=== PATIENT | female | born 1960 | race American Indian/Alaskan Native ===

== ENCOUNTER 2016-07-23 17:17 | Emergency (ER) | payer MEDICARE, BC ==
[2016-07-23 17:32] VITALS: BP 150/84
[2016-07-23] MEDS ORDERED: Sodium Chloride 0.65% Nasal Spray 45 ML Bottle NAS ONE (18:06)
--- NOTE | 2016-07-23 18:12 | EDM.PDOC ---
ED HPI ENT - General Chief Complaint: ENT Problem Stated Complaint: ENT PROB Time Seen by Provider: 07/23/16 18:07 Source of Information: Reports: Patient History Limitations: Reports: No limitations - History of Present Illness INITIAL COMMENTS - FREE TEXT/NARRATIVE: Pt states that she has had multiple nose bleeds over the past week with the last being earlier today. States that it takes on average about 1 hour to control bleeding. c/o congestion and nasal drainage. Symptom Onset Date: 07/17/16 Timing/Duration: Reports: Getting worse, Waxing/waning Severity: moderate Location: Reports: right nares, left nares Improves with: Reports: None Worsens with: Reports: Other (blowing nose) Associated Symptoms: Reports: no other symptoms - Related Data Allergies/ADRs: Allergies Allergy/AdvReac Type Severity Reaction Status Date / Time cats Allergy Sneezing Uncoded 07/23/16 17:26 Home Meds: Home Meds Topiramate 150 mg PO BID 07/23/16 [History] carBAMazepine [Carbamazepine] 400 mg PO QID 07/23/16 [History] Past Medical History HEENT History: Reports: Impaired vision Cardiovascular History: Reports: High cholesterol, Hypertension Neurological History: Reports: Seizure - Infectious Disease History Infectious Disease History: Reports: Mumps Social & Family History - Family History Family Medical History: Noncontributory - Tobacco Use Smoking Status *Q: Former Smoker - Recreational Drug Use Recreational Drug Use: No ED ROS ENT - Review of Systems Review Of Systems: See Below HEENT: Reports: Nosebleed, Rhinitis, Sinus problem ED EXAM, ENT - Physical Exam Exam: See Below Exam Limited By: No limitations General Appearance: alert, WD/WN, no apparent distress Eye Exam: bilateral eye: PERRL Ears: normal external exam, normal canal, hearing grossly normal, TM fluid Nose: clear rhinorrhea, dried blood, injected turbinates Mouth/Throat: Normal inspection, Normal gums, Normal lips, Normal oropharynx, Normal teeth Respiratory/Chest: no respiratory distress, lungs clear, normal breath sounds, no accessory muscle use, chest non-tender Cardiovascular: normal peripheral pulses, regular rate, rhythm, no edema, no gallop, no JVD, no murmur, no rub Neurological: alert, oriented Course - Vital Signs Last Recorded V/S: Last Vital Signs Temp 96.8 F 03/27/17 17:27 Pulse 97 07/23/16 17:27 Resp 18 07/23/16 17:27 BP 150/84 H 07/23/16 17:27 Pulse Ox 99 07/23/16 17:27 - Orders/Labs/Meds Labs: Laboratory Tests 07/23/16 Range/Units 18:16 WBC 9.0 (5.0-10.0) 10^3/uL RBC 4.61 (4.2-5.4) 10^6/uL Hgb 16.0 (12.0-16.0) g/dL Hct 47.1 H (37.0-47.0) % MCV 102.2 H (80-100) fL MCH 34.7 H (27.0-34.0) pg MCHC 34.0 (33.0-35.0) g/dL Plt Count 241 (150-450) 10^3/uL Neut % (Auto) 76.4 H (42.2-75.2) % Lymph % (Auto) 16.9 L (20.5-50.1) % Grant % (Auto) 6.5 (2-8) % Eos % (Auto) 0.0 L (1.0-3.0) % Baso % (Auto) 0.2 (0.0-1.0) % Meds: Medications Discontinued Medications Generic Name Dose Route Start Last Admin Trade Name Christianoq PRN Reason Stop Dose Admin Sodium Chloride 2 ml 07/23/16 18:06 07/23/16 18:12 [place] Nasal [place] KERRY 07/23/16 18:07 2 ml ONETIME ONE Administration Departure - Departure Time of Disposition: 18:43 Disposition: Home, Self-Care 01 Condition: good Clinical Impression: Epistaxis Sinusitis nasal Qualifiers: Sinusitis location: unspecified location Chronicity: acute Recurrence: non- recurrent Qualified Code(s): J01.90 - Acute sinusitis, unspecified Forms: ED Department Discharge Additional Instructions: Get over the counter saline nasal spray to keep your nasal passages from drying out and to prevent more nose bleeds. Take the claritin once daily for allergies. follow up in clinic if not better in 1 week. return for worsening symptoms.
== END 2016-07-23 19:01 | disposition home or self-care (01) ==
LOC: DL.ED 17:17
DX: R04.0 Epistaxis (principal); J01.90 Acute sinusitis, unspecified; E78.00 Pure hypercholesterolemia, unspecified; I10 Essential (primary) hypertension; Z87.891 Personal history of nicotine dependence; Z79.899 Other long term (current) drug therapy; Z91.09 Other allergy status, other than to drugs and biological substances
CPT/HCPCS: 36415; 85025; 99283; A9270; 99282

== ENCOUNTER 2017-05-02 23:39 | Emergency (ER) | payer MEDICARE, BC ==
[2017-05-02 23:57] VITALS: BP 133/73
--- NOTE | 2017-05-03 00:24 | EDM.PDOC ---
ED HPI GENERAL MEDICAL PROBLEM - General Stated Complaint: BRONCHITIS? [id number] Time Seen by Provider: 05/03/17 00:10 Source of Information: Reports: Patient History Limitations: Reports: No Limitations - History of Present Illness INITIAL COMMENTS - FREE TEXT/NARRATIVE: This 56 yo female patient reports to the ED due to a 1 week history of a productive cough. The patient reports she has been taking Nyquil for temporary symptom relief. Duration: Week(s): (1), Constant, Getting Worse Location: Reports: Chest Quality: Reports: Other Severity: Moderate Improves with: Reports: None Worsens with: Reports: None Associated Symptoms: Reports: No Other Symptoms Chest Pain Score (Numeric/FACES): 6 - Related Data Allergies Allergy/AdvReac Type Severity Reaction Status Date / Time cats Allergy Sneezing Uncoded 05/02/17 23:51 Home Meds: Home Meds Topiramate 150 mg PO BID 07/23/16 [History] carBAMazepine [Carbamazepine] 400 mg PO QID 07/23/16 [History] Meloxicam 15 mg PO DAILY 05/02/17 [History] Venlafaxine HCl [Venlafaxine ER] 37.5 mg PO BID 05/02/17 [History] amLODIPine [Norvasc] 2.5 mg PO DAILY 05/02/17 [History] Past Medical History HEENT History: Reports: Impaired Vision Cardiovascular History: Reports: High Cholesterol, Hypertension Respiratory History: Reports: None Gastrointestinal History: Reports: None Genitourinary History: Reports: None 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: 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 Neurological History: Reports: Seizure Psychiatric History: Reports: None Endocrine/Metabolic History: Reports: None Hematologic History: Reports: None Immunologic History: Reports: None Oncologic (Cancer) History: Reports: None Dermatologic History: Reports: None - Infectious Disease History Infectious Disease History: Reports: Mumps Social & Family History - Family History Family Medical History: Noncontributory - Tobacco Use Smoking Status *Q: Never Smoker - Recreational Drug Use Recreational Drug Use: No ED ROS GENERAL - Review of Systems Review Of Systems: ROS reveals no pertinent complaints other than HPI. ED EXAM, GENERAL - Physical Exam Exam: See Below Exam Limited By: No Limitations General Appearance: Alert, WD/WN, Mild Distress Eye Exam: Bilateral Eye: EOMI, Normal Inspection, PERRL Ears: Normal External Exam, Normal Canal, Hearing Grossly Normal, Normal TMs Nose: Normal Inspection, Normal Mucosa, No Blood Throat/Mouth: Normal Inspection, Normal Lips, Normal Oropharynx, Normal Voice, No Airway Compromise, Other (profound dental decay) Head: Atraumatic, Normocephalic Neck: Normal Inspection, Supple, Non-Tender, Full Range of Motion Respiratory/Chest: No Respiratory Distress, Lungs Clear, Normal Breath Sounds, No Accessory Muscle Use, Chest Non-Tender Cardiovascular: Normal Peripheral Pulses, Regular Rate, Rhythm, No Edema, No Gallop, No JVD, No Murmur, No Rub GI/Abdominal: Normal Bowel Sounds, Soft, Non-Tender, No Organomegaly, No Distention, No Abnormal Bruit, No Mass (Female) Exam: Deferred Rectal (Female) Exam: Deferred Back Exam: Normal Inspection, Full Range of Motion, NT Extremities: Normal Inspection, Normal Range of Motion, Non-Tender, Normal Capillary Refill, No Pedal Edema Neurological: Alert, Oriented, CN II-XII Intact, Normal Cognition, Normal Gait, Normal Reflexes, No Motor/Sensory Deficits Psychiatric: Normal Affect, Normal Mood Skin Exam: Warm, Dry, Intact, Normal Color, No Rash Lymphatic: No Adenopathy Course - Vital Signs Last Recorded V/S: Last Vital Signs Temp 36.2 C 05/02/17 23:54 Pulse 94 05/02/17 23:54 Resp 18 05/02/17 23:54 BP 133/73 05/02/17 23:54 Pulse Ox 100 05/02/17 23:54 - Orders/Labs/Meds Orders: Active Orders 24 hr Category Date Time Status CARBAMAZEPINE [REF] Stat Lab 05/02/17 00:15 Received COMPREHENSIVE METABOLIC PN,CMP [CHEM] Urgent Lab 05/02/17 00:15 Received Amoxicillin/Clavulanate K [Augmentin 500 MG\125 MG] Med 05/03/17 00:31 Once 1 tab PO ONETIME ONE Labs: Laboratory Tests 05/02/17 Range/Units 00:15 WBC 6.7 (5.0-10.0) 10^3/uL RBC 4.57 (4.2-5.4) 10^6/uL Hgb 15.6 (12.0-16.0) g/dL Hct 46.5 (37.0-47.0) % MCV 101.8 H (80-100) fL MCH 34.1 H (27.0-34.0) pg MCHC 33.5 (33.0-35.0) g/dL Plt Count 200 (150-450) 10^3/uL Neut % (Auto) 67.7 (42.2-75.2) % Lymph % (Auto) 22.8 (20.5-50.1) % [place] % (Auto) 9.0 H (2-8) % Eos % (Auto) 0.1 L (1.0-3.0) % Baso % (Auto) 0.4 (0.0-1.0) % Departure - Departure Time of Disposition: 00:32 Disposition: Home, Self-Care 01 Condition: Fair Clinical Impression: Bronchitis - Discharge Information Instructions: Acute Bronchitis, [id number] Forms: ED Department Discharge Care Plan Goals: The patient and family were advised of the examination, x-ray and lab results during the visit. The patient was given an oral dose of Augmentin while in the ED. The patient was discharged with a script for Augmentin (500/125) #20 to take 1 by mouth 2 times per day for 10 days. If the patient has any additional symptoms or concerns, the patient should follow-up with her primary care facility or return to the ED. - My Orders Last 24 Hours: My Active Orders 05/02/17 00:15 CARBAMAZEPINE [REF] Stat COMPREHENSIVE METABOLIC PN,CMP [CHEM] Urgent 05/03/17 00:31 Amoxicillin/Clavulanate K [Augmentin 500 MG\125 MG] 1 tab PO ONETIME ONE - Assessment/Plan Last 24 Hours: My Active Orders 05/02/17 00:15 CARBAMAZEPINE [REF] Stat COMPREHENSIVE METABOLIC PN,CMP [CHEM] Urgent 05/03/17 00:31 Amoxicillin/Clavulanate K [Augmentin 500 MG\125 MG] 1 tab PO ONETIME ONE
[2017-05-03] MEDS ORDERED: Amoxicillin/Clavulanate K 500-125 MG Tab PO ONE (00:31)
[2017-05-03 00:43] LABS: CHLORIDE,CL 103 mmol/L (101-111); SODIUM,NA 136 mmol/L (135-145)
== END 2017-05-03 00:44 | disposition home or self-care (01) ==
LOC: DL.ED 23:39
DX: J40 Bronchitis, not specified as acute or chronic (principal); I10 Essential (primary) hypertension; E78.00 Pure hypercholesterolemia, unspecified; Z79.899 Other long term (current) drug therapy; Z91.09 Other allergy status, other than to drugs and biological substances
CPT/HCPCS: 36415; 71046; 80053; 80156; 85025; 99285; A9270; 99283

== ENCOUNTER 2019-06-16 18:13 | Emergency (ER) | payer MEDICARE, BC ==
[2019-06-16 18:24] VITALS: PULSE 101
--- NOTE | 2019-06-16 19:20 | EDM.PDOC ---
ED HPI GENERAL MEDICAL PROBLEM - General Chief Complaint: Genitourinary Problem Stated Complaint: AMB Time Seen by Provider: 06/16/19 19:19 Source of Information: Reports: Patient, Family, RN, RN Notes Reviewed History Limitations: Reports: No Limitations - History of Present Illness INITIAL COMMENTS - FREE TEXT/NARRATIVE: patient presents to the ER with complaint of neck pain, as she states she had a fall in her bathroom today. Patient states she did not hit her head and did not get knocked out, but complains of neck pain. Patient states she was in a saini to get to the bathroom as she states she has had cloudy, foul-smelling urine, frequency, urgency, burning with urination for the past week to 2 weeks. Patient states she has had fever and chills from time to time, admits to some nausea at times. Onset: Gradual Onset Date: 06/11/19 Lower Abdomen Pain Score (Numeric/FACES): 10 - Related Data Allergies Allergy/AdvReac Type Severity Reaction Status Date / Time influenza virus vaccine, Allergy Swelling Verified 06/16/19 18:26 specific cats Allergy Sneezing Uncoded 06/16/19 18:26 Home Meds: Home Meds Topiramate 150 mg PO BID 07/23/16 [History] carBAMazepine [Carbamazepine] 400 mg PO QID 07/23/16 [History] Meloxicam 15 mg PO BID 05/02/17 [History] Acetaminophen [Tylenol] 650 mg PO ASDIRECTED PRN 02/17/18 [History] Past Medical History HEENT History: Reports: Impaired Vision Other HEENT History: wears glasses Cardiovascular History: Reports: High Cholesterol, Hypertension Respiratory History: Reports: None Gastrointestinal History: Reports: None Genitourinary History: Reports: UTI, Recurrent HAY STACKER History: Reports: None Musculoskeletal History: Reports: Arthritis, Other (See Below) Other Musculoskeletal History: leg pain and 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 Neurological History: Reports: CVA, Seizure Psychiatric History: Reports: None Endocrine/Metabolic History: Reports: None Hematologic History: Reports: None Immunologic History: Reports: None Oncologic (Cancer) History: Reports: None Dermatologic History: Reports: None - Infectious Disease History Infectious Disease History: Reports: Mumps - Past Surgical History Head Surgeries/Procedures: Reports: None Musculoskeletal Surgical History: Reports: None Social & Family History - Family History Family Medical History: Noncontributory - Tobacco Use Smoking Status *Q: Never Smoker Second Hand Smoke Exposure: No - Caffeine Use Caffeine Use: Reports: Coffee, Tea - Recreational Drug Use Recreational Drug Use: No ED ROS GENERAL - Review of Systems Review Of Systems: Comprehensive ROS is negative, except as noted in HPI. ED EXAM, RENAL/ - Physical Exam Exam: See Below Exam Limited By: No Limitations General Appearance: Alert, WD/WN, No Apparent Distress Eye Exam: Bilateral Eye: EOMI, Normal Inspection Ears: Normal External Exam, Hearing Grossly Normal Nose: Normal Inspection Throat/Mouth: Normal Inspection, Normal Voice, No Airway Compromise Head: Atraumatic, Normocephalic Neck: Normal Inspection, Supple, Non-Tender, Full Range of Motion Respiratory/Chest: No Respiratory Distress, Lungs Clear, Normal Breath Sounds, No Accessory Muscle Use, Chest Non-Tender Cardiovascular: Normal Peripheral Pulses, Regular Rate, Rhythm, No Edema, No Gallop, No JVD, No Murmur, No Rub GI/Abdominal: Normal Bowel Sounds, Soft, Non-Tender, No Organomegaly, No Distention, No Abnormal Bruit, No Mass (Female) Exam: Deferred Rectal (Female) Exam: Deferred Back Exam: Normal Inspection, Full Range of Motion, NT Extremities: Normal Inspection, Normal Range of Motion, Non-Tender, Normal Capillary Refill, No Pedal Edema Neurological: Alert, Oriented, CN II-XII Intact, Normal Cognition, Normal Gait, Normal Reflexes, No Motor/Sensory Deficits Psychiatric: Normal Affect, Normal Mood Skin Exam: Warm, Dry, Intact, Normal Color, No Rash Lymphatic: No Adenopathy Course - Vital Signs Last Recorded V/S: Last Vital Signs Temp 98.1 F 06/16/19 18:16 Pulse 101 H 06/16/19 18:16 Resp 18 06/16/19 18:16 BP Pulse Ox 100 06/16/19 18:16 - Orders/Labs/Meds Orders: Active Orders 24 hr Category Date Time Status Abdomen Pelvis wo Cont [CT] Urgent Exams 06/16/19 19:09 Taken Cervical Spine wo Cont [CT] Urgent Exams 06/16/19 18:38 Taken CULTURE URINE [RM] Stat Lab 06/16/19 20:51 Received Labs: Laboratory Tests 06/16/19 06/16/19 06/16/19 Range/Units 19:52 19:52 20:51 WBC 6.6 (5.0-10.0) 10^3/uL RBC 4.44 (4.2-5.4) 10^6/uL Hgb 15.9 (12.0-16.0) g/dL Hct 45.8 (37.0-47.0) % MCV 103.2 H (80-100) fL MCH 35.8 H (27.0-34.0) pg MCHC 34.7 (33.0-35.0) g/dL Plt Count 137 L D (150-450) 10^3/uL Neut % (Auto) 73.7 (42.2-75.2) % Lymph % (Auto) 12.8 L (20.5-50.1) % Pierce % (Auto) 13.0 H (2-8) % Eos % (Auto) 0.0 L (1.0-3.0) % Baso % (Auto) 0.5 (0.0-1.0) % Sodium 134 L (135-145) mmol/L Potassium 3.9 (3.6-5.0) mmol/L Chloride 102 (101-111) mmol/L Carbon Dioxide 23.0 (21.0-31.0) mmol/L Anion Gap 12.9 BUN 11 (7-18) mg/dL Creatinine 0.9 (0.6-1.3) mg/dL Est Cr Clr Drug Dosing 48.94 mL/min Estimated GFR (MDRD) > 60 BUN/Creatinine Ratio 12.22 Glucose 102 (74-105) mg/dL Calcium 8.6 (8.4-10.2) mg/dl Total Bilirubin 0.8 (0.2-1.0) mg/dL AST 29 (10-42) IU/L ALT 18 (10-60) IU/L Alkaline Phosphatase 142 H (42-121) IU/L Total Protein 8.6 H (6.7-8.2) g/dl Albumin 4.0 (3.2-5.5) g/dl Globulin 4.6 Albumin/Globulin Ratio 0.87 Urine Color Yellow (YELLOW) Urine Appearance Turbid (CLEAR) Urine pH 7.0 (5.0-9.0) Ur Specific [place] >= 1.030 (1.005-1.030) Urine Protein 100 H (NEGATIVE) Urine Glucose (UA) Negative (NEGATIVE) Urine Ketones 40 H (NEGATIVE) Urine Occult Blood Small H (NEGATIVE) Urine Nitrite Negative (NEGATIVE) Urine Bilirubin Small H (NEGATIVE) Urine Urobilinogen 1.0 (0.2-1.0) mg/dL Ur Leukocyte Esterase Negative (NEGATIVE) Urine RBC 0-5 /HPF Urine WBC 10-20 H (0-5/HPF) /HPF Ur Epithelial Cells Few (NOT SEEN) /HPF Amorphous Sediment Few (NOT SEEN) /HPF Urine Bacteria Many H (0-FEW/HPF) /HPF Urine Mucus Rare (NOT SEEN) /LPF - Radiology Interpretation Free Text/Narrative:: CT CSpine wo contrast: FINDINGS: Vertebrae: There is nonspecific straightening of the normal cervical lordotic curve. There is mild anterior osteophytic lipping at C4 and C5. Discs/Spinal canal/Neural foramina: There is mild disc space narrowing throughout the cervical spine. There is no sign of central canal stenosis or nerve root compression. Soft tissues: Unremarkable. Lungs: Lung apices are normal. IMPRESSION: 1. Mild disc space narrowing throughout the cervical spine. 2. Mild anterior osteophytic lipping at C4 and C5. 3. No sign of central canal stenosis or nerve root compression. Thank you for allowing us to participate in the care of your patient. Dictated and Authenticated by: Kevin Garcia DO 06/16/2019 7:58 PM Central Time ([place] & [place]) Abdomen/Pelvis CT wo contrast: FINDINGS: Liver: Normal. No mass. Gallbladder and bile ducts: Normal. No calcified stones. No ductal dilation. Pancreas: Normal. No ductal dilation. Spleen: Normal. No splenomegaly. Adrenals: There is a 1.9 cm fatty left adrenal mass that most likely is an adrenal adenoma. A lipoma could have a similar appearance. Kidneys and ureters: There is no sign of hydronephrosis or kidney stones. Stomach and bowel: Unremarkable. No obstruction. No mucosal thickening. Appendix: There are surgical clips in the right lower quadrant at the cecum that most likely are from appendectomy. Intraperitoneal space: Unremarkable. No free air. No significant fluid collection. Vasculature: Unremarkable. No abdominal aortic aneurysm. Lymph nodes: Unremarkable. No enlarged lymph nodes. Bladder: Unremarkable as visualized. Reproductive: The ovaries are not well delineated. The uterus is normal. Bones/joints: There is anterior osteophytic lipping in the lumbar spine. There is severe disc space narrowing L4-S1 inclusive. Soft tissues: See Adrenals Finding. IMPRESSION: 1. Surgical clips in the right lower quadrant probably from appendectomy. 2. Multilevel degenerative changes In the lumbar spine. 3. 1.9 cm left adrenal adenoma. No further follow-up is needed. 4. No acute abnormality in the abdomen or pelvis. COMMENTS: Consistent with the [employer]'s Incidental Findings Committee white paper (J Am Berenice Radiol 2017): For any incidental adrenal lesion greater than 1.0 cm but less than 4.0 cm classified in this report as benign or likely benign (including classification as an adenoma or myelolipoma), no follow-up imaging is recommended per consensus recommendations based on imaging criteria. Further lab evaluation could be pursued if warranted based on clinical findings. Thank you for allowing us to participate in the care of your patient. Dictated and Authenticated by: Kevin Garcia DO 06/16/2019 8:17 PM Central Time ([place] & [place]) See rad report Departure - Departure Time of Disposition: 21:34 Disposition: Home, Self-Care 01 Condition: Fair Clinical Impression: Neck pain - Discharge Information *PRESCRIPTION DRUG MONITORING PROGRAM REVIEWED*: No *COPY OF PRESCRIPTION DRUG MONITORING REPORT IN PATIENT BETO: No Instructions: Cervical Strain and Sprain Rehab-SportsMed Forms: ED Department Discharge Additional Instructions: Drink plenty of water May use over the counter AZO urinary health medication as directed Follow up with your primary care facility May use heat to the neck as tolerated May use Tylenol and/or Ibuprofen as directed for pain Sepsis Event Note - Evaluation Sepsis Screening Result: No Definite Risk - Focused Exam Vital Signs: Vital Signs Temp Pulse Resp Pulse Ox 06/16/19 18:16 98.1 F 101 H 18 100 Date Exam was Performed: 06/16/19 Time Exam was Performed: 21:34 - My Orders Last 24 Hours: My Active Orders 06/16/19 20:51 CULTURE URINE [RM] Stat - Assessment/Plan Last 24 Hours: My Active Orders 06/16/19 20:51 CULTURE URINE [RM] Stat
[2019-06-16 20:19] LABS: ANION GAP 12.9; CHLORIDE,CL 102 mmol/L (101-111); SODIUM,NA 134 mmol/L (135-145)
== END 2019-06-16 21:45 | disposition home or self-care (01) ==
LOC: DL.ED 18:13
DX: M54.2 Cervicalgia (principal); I10 Essential (primary) hypertension; R56.9 Unspecified convulsions; M19.90 Unspecified osteoarthritis, unspecified site; Z88.7 Allergy status to serum and vaccine; Z91.09 Other allergy status, other than to drugs and biological substances; Z79.899 Other long term (current) drug therapy; Z86.73 Personal history of transient ischemic attack (TIA), and cerebral infarction without residual deficits; W19.XXXA Unspecified fall, initial encounter; Y93.89 Activity, other specified; Y92.002 Bathroom of unspecified non-institutional (private) residence as the place of occurrence of the external cause
CPT/HCPCS: 36415; 72125; 74176; 80053; 81001; 85025; 87086; 87088; 87186; 99282; 99284-25

== ENCOUNTER 2019-07-02 22:00 | Emergency (ER) | payer MEDICARE, BC ==
[2019-07-02 22:14] VITALS: BP 161/82; PULSE 102
--- NOTE | 2019-07-02 22:38 | EDM.PDOC ---
ED HPI GENERAL MEDICAL PROBLEM - General Chief Complaint: Genitourinary Problem Stated Complaint: AMBULANCE Time Seen by Provider: 07/02/19 22:38 Source of Information: Reports: Patient, EMS, EMS Notes Reviewed, RN, RN Notes Reviewed History Limitations: Reports: No Limitations - History of Present Illness INITIAL COMMENTS - FREE TEXT/NARRATIVE: patient presents to ER per [facility] with complaint of urinary tract infection. Patient states she was diagnosed with a urinary tract infection on June 16, was given Macrobid which she has finished, but continues to have burning and pain with urination. Complains of lower abdominal painwraps around to the back at times. Admits to chills, unsure of fever. Denies nausea or vomiting, diarrhea. 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 Lower Abdomen Pain Score (Numeric/FACES): 8 - Related Data Allergies Allergy/AdvReac Type Severity Reaction Status Date / Time influenza virus vaccine, Allergy Swelling Verified 06/16/19 18:26 specific cats Allergy Sneezing Uncoded 06/16/19 18:26 Home Meds: Home Meds Topiramate 150 mg PO BID 07/23/16 [History] carBAMazepine [Carbamazepine] 400 mg PO QID 07/23/16 [History] Meloxicam 15 mg PO BID 05/02/17 [History] Acetaminophen [Tylenol] 650 mg PO ASDIRECTED PRN 02/17/18 [History] Past Medical History HEENT History: Reports: Impaired Vision Other HEENT History: wears glasses Cardiovascular History: Reports: High Cholesterol, Hypertension Respiratory History: Reports: None Gastrointestinal History: Reports: None Genitourinary History: Reports: None 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 Musculoskeletal History: Reports: None Neurological History: Reports: CVA, Seizure Psychiatric History: Reports: None Endocrine/Metabolic History: Reports: Diabetes, Type II Hematologic History: Reports: None Immunologic History: Reports: None Oncologic (Cancer) History: Reports: None Dermatologic History: Reports: None - Infectious Disease History Infectious Disease History: Reports: Mumps - Past Surgical History Head Surgeries/Procedures: Reports: None Social & Family History - Family History Family Medical History: Noncontributory - Tobacco Use Smoking Status *Q: Current Status Unknown Second Hand Smoke Exposure: No - Caffeine Use Caffeine Use: Reports: Coffee, Soda, Tea - Recreational Drug Use Recreational Drug Use: No ED ROS GENERAL - Review of Systems Review Of Systems: Comprehensive ROS is negative, except as noted in HPI. ED EXAM, RENAL/ - Physical Exam Exam: See Below Exam Limited By: No Limitations General Appearance: Alert, WD/WN, No Apparent Distress Eye Exam: Bilateral Eye: EOMI, Normal Inspection Ears: Normal External Exam, Hearing Grossly Normal Nose: Normal Inspection Throat/Mouth: Normal Inspection, Normal Voice, No Airway Compromise Head: Atraumatic, Normocephalic Neck: Normal Inspection, Supple, Non-Tender, Full Range of Motion Respiratory/Chest: No Respiratory Distress, Lungs Clear, Normal Breath Sounds, No Accessory Muscle Use, Chest Non-Tender Cardiovascular: Normal Peripheral Pulses, Regular Rate, Rhythm, No Edema, No Gallop, No JVD, No Murmur, No Rub GI/Abdominal: Normal Bowel Sounds, Soft, Tender (RLQ, LLQ) (Female) Exam: Deferred Rectal (Female) Exam: Deferred Back Exam: Normal Inspection, Full Range of Motion, NT Extremities: Normal Inspection, Normal Range of Motion, Non-Tender, Normal Capillary Refill, No Pedal Edema Neurological: Alert, Oriented, CN II-XII Intact, Normal Cognition, Normal Gait, Normal Reflexes, No Motor/Sensory Deficits Psychiatric: Normal Affect, Normal Mood Skin Exam: Warm, Dry, Intact, Normal Color, No Rash Lymphatic: No Adenopathy Course - Vital Signs Last Recorded V/S: Last Vital Signs Temp 96.4 F L 07/02/19 22:05 Pulse 102 H 07/02/19 22:05 Resp 19 07/02/19 22:05 BP 161/82 H 07/02/19 22:05 Pulse Ox 99 07/02/19 22:05 - Orders/Labs/Meds Orders: Active Orders 24 hr Category Date Time Status CULTURE URINE [RM] Routine Lab 07/02/19 22:17 Received Labs: Laboratory Tests 07/02/19 07/02/19 07/02/19 Range/Units 22:17 23:00 23:00 WBC 8.2 (5.0-10.0) 10^3/uL RBC 4.40 (4.2-5.4) 10^6/uL Hgb 15.7 (12.0-16.0) g/dL Hct 44.4 (37.0-47.0) % MCV 100.9 H (80-100) fL MCH 35.7 H (27.0-34.0) pg MCHC 35.4 H (33.0-35.0) g/dL Plt Count 225 D (150-450) 10^3/uL Neut % (Auto) 71.5 (42.2-75.2) % Lymph % (Auto) 21.1 (20.5-50.1) % [place] % (Auto) 7.3 (2-8) % Eos % (Auto) 0.0 L (1.0-3.0) % Baso % (Auto) 0.1 (0.0-1.0) % Sodium 136 (135-145) mmol/L Potassium 3.1 L (3.6-5.0) mmol/L Chloride 106 (101-111) mmol/L Carbon Dioxide 23.0 (21.0-31.0) mmol/L Anion Gap 10.1 BUN 7 (7-18) mg/dL Creatinine 0.6 (0.6-1.3) mg/dL Est Cr Clr Drug Dosing 77.12 mL/min Estimated GFR (MDRD) > 60 BUN/Creatinine Ratio 11.66 Glucose 96 (74-105) mg/dL Calcium 8.2 L (8.4-10.2) mg/dl Total Bilirubin 0.4 (0.2-1.0) mg/dL AST 15 (10-42) IU/L ALT 13 (10-60) IU/L Alkaline Phosphatase 145 H (42-121) IU/L Total Protein 7.6 (6.7-8.2) g/dl Albumin 3.5 (3.2-5.5) g/dl Globulin 4.1 Albumin/Globulin Ratio 0.85 Urine Color Elizabeth (YELLOW) Urine Appearance Slightly cloudy (CLEAR) Urine pH 7.0 (5.0-9.0) Ur Specific [place] 1.020 (1.005-1.030) Urine Protein 30 H (NEGATIVE) Urine Glucose (UA) Negative (NEGATIVE) Urine Ketones Negative (NEGATIVE) Urine Occult Blood Trace-lysed H (NEGATIVE) Urine Nitrite Negative (NEGATIVE) Urine Bilirubin Negative (NEGATIVE) Urine Urobilinogen 1.0 (0.2-1.0) mg/dL Ur Leukocyte Esterase Small H (NEGATIVE) Urine RBC 0-5 /HPF Urine WBC 20-30 H (0-5/HPF) /HPF Ur Epithelial Cells Few (NOT SEEN) /HPF Urine Bacteria Many H (0-FEW/HPF) /HPF Meds: Medications Discontinued Medications Generic Name Dose Route Start Last Admin Trade Name Ej PRN Reason Stop Dose Admin Cephalexin 500 mg 07/02/19 23:13 07/02/19 23:20 Keflex PO 07/02/19 23:14 500 mg ONETIME ONE Administration Potassium Chloride 40 meq 07/02/19 23:43 Klor-Con 10 PO 07/02/19 23:44 ONETIME ONE Departure - Departure Time of Disposition: 23:44 Disposition: Home, Self-Care 01 Condition: Fair Clinical Impression: UTI, Urinary tract infectious disease, Hypokalemia - Discharge Information *PRESCRIPTION DRUG MONITORING PROGRAM REVIEWED*: No *COPY OF PRESCRIPTION DRUG MONITORING REPORT IN PATIENT BETO: No Instructions: Hypokalemia, Urinary Tract Infection, Adult, [id number], Potassium Content of Foods Referrals: Brian Marquez NP [Primary Care Provider] - Forms: ED Department Discharge Additional Instructions: drink plenty of water Rx: Cephalexin, potassium chloride Follow-up with your primary care provider for recheck of the urine, or if no improvement Sepsis Event Note - Evaluation Sepsis Screening Result: No Definite Risk - Focused Exam Vital Signs: Vital Signs Temp Pulse Resp BP Pulse Ox 07/02/19 22:05 96.4 F L 102 H 19 161/82 H 99 Date Exam was Performed: 07/03/19 Time Exam was Performed: 00:00 - My Orders Last 24 Hours: My Active Orders 07/02/19 22:17 CULTURE URINE [RM] Routine - Assessment/Plan Last 24 Hours: My Active Orders 07/02/19 22:17 CULTURE URINE [RM] Routine
[2019-07-02] MEDS ORDERED: Cephalexin 500 MG Cap PO ONE (23:13)
[2019-07-02 23:24] LABS: ANION GAP 10.1; CHLORIDE,CL 106 mmol/L (101-111); SODIUM,NA 136 mmol/L (135-145)
[2019-07-02] MEDS ORDERED: Potassium Chloride 10 MEQ Tab.ER PO ONE (23:43)
== END 2019-07-03 00:07 | disposition home or self-care (01) ==
LOC: DL.ED 22:00
DX: N39.0 Urinary tract infection, site not specified (principal); E87.6 Hypokalemia; I10 Essential (primary) hypertension; E78.00 Pure hypercholesterolemia, unspecified; Z79.899 Other long term (current) drug therapy; Z88.7 Allergy status to serum and vaccine; Z91.09 Other allergy status, other than to drugs and biological substances
CPT/HCPCS: 36415; 80053; 81001; 85025; 87086; 87088; 87186; 99284; A9270; 99283

== ENCOUNTER 2019-07-16 18:50 | Emergency (ER) | payer MEDICARE, BC ==
[2019-07-16] MEDS ORDERED: Magnesium Citrate Solution 296 ML Bottle PO ONE (18:51)
[2019-07-16 18:55] VITALS: BP 117/58; PULSE 91
--- NOTE | 2019-07-16 19:04 | EDM.PDOC ---
ED HPI GENERAL MEDICAL PROBLEM - General Chief Complaint: Abdominal Pain Stated Complaint: AMBULANCE Time Seen by Provider: 07/16/19 19:00 Source of Information: Reports: Patient History Limitations: Reports: No Limitations - History of Present Illness INITIAL COMMENTS - FREE TEXT/NARRATIVE: c/o recurrent pain on urination and RLQ just like the time she had UTI a month ago. also some burning on urination. denies N/V/D but hadn't had BM for a week, last time it was large and jonas. Left Lower Abdomen Pain Score (Numeric/FACES): 9 - Related Data Allergies Allergy/AdvReac Type Severity Reaction Status Date / Time influenza virus vaccine, Allergy Swelling Verified 07/16/19 18:55 specific cats Allergy Sneezing Uncoded 07/16/19 18:55 Home Meds: Home Meds Topiramate 150 mg PO BID 07/23/16 [History] carBAMazepine [Carbamazepine] 400 mg PO QID 07/23/16 [History] Acetaminophen [Tylenol] 650 mg PO ASDIRECTED PRN 02/17/18 [History] Past Medical History HEENT History: Reports: Impaired Vision Other HEENT History: wears glasses Cardiovascular History: Reports: High Cholesterol, Hypertension Respiratory History: Reports: None Gastrointestinal History: Reports: None Genitourinary History: Reports: None 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 Musculoskeletal History: Reports: None Neurological History: Reports: CVA, Seizure Psychiatric History: Reports: None Endocrine/Metabolic History: Reports: Diabetes, Type II Hematologic History: Reports: None Immunologic History: Reports: None Oncologic (Cancer) History: Reports: None Dermatologic History: Reports: None - Infectious Disease History Infectious Disease History: Reports: Mumps - Past Surgical History Head Surgeries/Procedures: Reports: None Social & Family History - Family History Family Medical History: Noncontributory - Caffeine Use Caffeine Use: Reports: Coffee, Soda, Tea ED ROS GENERAL - Review of Systems Review Of Systems: Comprehensive ROS is negative, except as noted in HPI. ED EXAM, GI/ABD - Physical Exam Exam: See Below Exam Limited By: No Limitations General Appearance: Alert, WD/WN, No Apparent Distress, Anxious Ears: Hearing Grossly Normal Throat/Mouth: Normal Voice, No Airway Compromise Head: Atraumatic Neck: Non-Tender, Full Range of Motion Respiratory/Chest: No Respiratory Distress Cardiovascular: Regular Rate, Rhythm GI/Abdominal Exam: Soft, Non-Tender, Other (some splinting to deep palpation.). No: Distended, Guarding, Rigid, Rebound, Tender Neurological: Alert, Oriented, Normal Cognition, Normal Gait, No Motor/Sensory Deficits Psychiatric: Anxious, Flat Affect Skin Exam: Warm, Dry, Normal Color Lymphatic: No Adenopathy Course - Vital Signs Last Recorded V/S: Last Vital Signs Temp 35.9 C L 07/16/19 18:50 Pulse 91 07/16/19 18:50 Resp 18 07/16/19 18:50 BP 117/58 L 07/16/19 18:50 Pulse Ox 100 07/16/19 18:50 - Orders/Labs/Meds Orders: Active Orders 24 hr Category Date Time Status KUB [Abdomen 1V Flat] [CR] Urgent Exams 07/16/19 18:58 Taken Labs: Laboratory Tests 07/16/19 07/16/19 07/16/19 Range/Units 19:07 19:07 19:16 WBC 8.4 (5.0-10.0) 10^3/uL RBC 4.24 (4.2-5.4) 10^6/uL Hgb 15.2 (12.0-16.0) g/dL Hct 43.8 (37.0-47.0) % MCV 103.3 H (80-100) fL MCH 35.8 H (27.0-34.0) pg MCHC 34.7 (33.0-35.0) g/dL Plt Count 217 (150-450) 10^3/uL Neut % (Auto) 76.9 H (42.2-75.2) % Lymph % (Auto) 16.4 L (20.5-50.1) % [place] % (Auto) 6.6 (2-8) % Eos % (Auto) 0.0 L (1.0-3.0) % Baso % (Auto) 0.1 (0.0-1.0) % Sodium 137 (136-145) mmol/L Potassium 3.3 L (3.5-5.1) mmol/L Chloride 103 (98-107) mmol/L Carbon Dioxide 26 (21-32) mmol/L Anion Gap 11.3 (7-13) mEq/L BUN 8 (7-18) mg/dL Creatinine 0.84 (0.55-1.02) mg/dL Est Cr Clr Drug Dosing 52.44 mL/min Estimated GFR (MDRD) > 60 BUN/Creatinine Ratio 9.5 (No establ ref range) Glucose 102 H (74-99) mg/dL Calcium 7.6 L (8.5-10.1) mg/dL Total Bilirubin 0.3 (0.2-1.0) mg/dL AST 12 L (15-37) U/L ALT 16 (14-59) U/L Alkaline Phosphatase 167 H (46-116) U/L Total Protein 7.6 (6.4-8.2) g/dL Albumin 2.9 L (3.4-5.0) g/dL Globulin 4.7 Albumin/Globulin Ratio 0.62 Urine Color Elizabeth (YELLOW) Urine Appearance Slightly cloudy (CLEAR) Urine pH 8.5 (5.0-9.0) Ur Specific [place] 1.020 (1.005-1.030) Urine Protein 30 H (NEGATIVE) Urine Glucose (UA) Negative (NEGATIVE) Urine Ketones Negative (NEGATIVE) Urine Occult Blood Negative (NEGATIVE) Urine Nitrite Negative (NEGATIVE) Urine Bilirubin Negative (NEGATIVE) Urine Urobilinogen 4.0 H (0.2-1.0) mg/dL Ur Leukocyte Esterase Negative (NEGATIVE) Urine RBC Not seen /HPF Urine WBC 0-5 (0-5/HPF) /HPF Ur Epithelial Cells Moderate H (NOT SEEN) /HPF Amorphous Sediment Moderate H (NOT SEEN) /HPF Urine Bacteria Moderate H (0-FEW/HPF) /HPF - Re-Assessments/Exams Free Text/Narrative Re-Assessment/Exam: 07/16/19 19:52 results discussed with pt who states she has constant problem with BM and doesn' t like prune juice but will eat more vegetables. Departure - Departure Time of Disposition: 19:53 Disposition: Home, Self-Care 01 Condition: Good Clinical Impression: Constipation by delayed colonic transit Abdominal pain Qualifiers: Abdominal location: left lower quadrant Qualified Code(s): R10.32 - Left lower quadrant pain - Discharge Information Instructions: Constipation, Adult, [id number] Referrals: Brian Marquez, RIZWAN [Primary Care Provider] - Forms: ED Department Discharge Additional Instructions: 1) try more prune juice and vegetables. 2) follow up at clinic rx togo; mag [facility] Sepsis Event Note - Evaluation Sepsis Screening Result: No Definite Risk - Focused Exam Vital Signs: Vital Signs Temp Pulse Resp BP Pulse Ox 07/16/19 18:50 35.9 C L 91 18 117/58 L 100 Date Exam was Performed: 07/16/19 Time Exam was Performed: 19:52 - My Orders Last 24 Hours: My Active Orders 07/16/19 18:58 KUB [Abdomen 1V Flat] [CR] Urgent - Assessment/Plan Last 24 Hours: My Active Orders 07/16/19 18:58 KUB [Abdomen 1V Flat] [CR] Urgent
[2019-07-16 19:40] LABS: ANION GAP 11.3 mEq/L (7-13); CHLORIDE,CL 103 mmol/L (98-107); SODIUM,NA 137 mmol/L (136-145)
[2019-07-16] MEDS ORDERED: Magnesium Citrate Solution 296 ML Bottle ONE (19:54)
== END 2019-07-16 20:00 | disposition home or self-care (01) ==
LOC: DL.ED 18:50
DX: K59.01 Slow transit constipation (principal); I10 Essential (primary) hypertension; E11.9 Type 2 diabetes mellitus without complications; Z88.7 Allergy status to serum and vaccine; Z86.73 Personal history of transient ischemic attack (TIA), and cerebral infarction without residual deficits
CPT/HCPCS: 36415; 74018; 80053; 81001; 85025; 99283; 99284-25; A9270-GY

== ENCOUNTER 2019-11-21 15:42 | Emergency (ER) | payer MEDICARE, BC ==
[2019-11-21] MEDS ORDERED: Cephalexin 500 MG Cap PO ONE ×2 (15:43→16:52)
[2019-11-21 16:09] VITALS: BP 138/87; PULSE 94
--- NOTE | 2019-11-21 16:21 | EDM.PDOC ---
ED HPI GENERAL MEDICAL PROBLEM - General Chief Complaint: ENT Problem Stated Complaint: COLD Time Seen by Provider: 11/21/19 16:20 Source of Information: Reports: Patient, RN, RN Notes Reviewed History Limitations: Reports: No Limitations - History of Present Illness INITIAL COMMENTS - FREE TEXT/NARRATIVE: Patient presents to ER with complaint of sore throat for the past 4 to 5 days. Patient states she has not had a cough, fever, chills, exposure to COVID, chest pains, shortness of breath. Patient states she has had some postnasal drip, nasal congestion. Patient states she was tested for COVID 2 days ago at a mass testing at the facility where she lives, but has not received results. Patient denies any COVID symptoms or exposure. Patient states she has had some freq uency urgency and burning with urination, frequent UTIs. Patient states she has been taking AZO. Patient complains of incontinence, and asks if the pads/protective undergarments that she wears could possibly be causing the UTIs. Patient was encouraged to see her primary care provider for referral to urology. Onset: Gradual - Related Data Allergies Allergy/AdvReac Type Severity Reaction Status Date / Time influenza virus vaccine, Allergy Swelling Verified 11/21/19 16:05 specific cats Allergy Sneezing Uncoded 07/16/19 18:55 Home Meds: Home Meds Topiramate 150 mg PO BID 07/23/16 [History] carBAMazepine [Carbamazepine] 400 mg PO QID 07/23/16 [History] Acetaminophen [Tylenol] 650 mg PO ASDIRECTED PRN 02/17/18 [History] Past Medical History HEENT History: Reports: Impaired Vision Other HEENT History: wears glasses Cardiovascular History: Reports: High Cholesterol, Hypertension Respiratory History: Reports: None Gastrointestinal History: Reports: None Genitourinary History: Reports: None 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 Musculoskeletal History: Reports: None Neurological History: Reports: CVA, Seizure Psychiatric History: Reports: None Endocrine/Metabolic History: Reports: Diabetes, Type II Hematologic History: Reports: None Immunologic History: Reports: None Oncologic (Cancer) History: Reports: None Dermatologic History: Reports: None - Infectious Disease History Infectious Disease History: Reports: Mumps - Past Surgical History Head Surgeries/Procedures: Reports: None Social & Family History - Family History Family Medical History: Noncontributory - Tobacco Use Smoking Status *Q: Former Smoker Years of Tobacco use: 10 Packs/Tins Daily: 1 Used Tobacco, but Quit: Yes Month/Year Tobacco Last Used: 1983 - Caffeine Use Caffeine Use: Reports: Coffee, Soda, Tea - Recreational Drug Use Recreational Drug Use: No ED ROS ENT - Review of Systems Review Of Systems: Comprehensive ROS is negative, except as noted in HPI. ED EXAM, ENT - Physical Exam Exam: See Below Exam Limited By: No Limitations General Appearance: Alert, WD/WN, No Apparent Distress Eye Exam: Bilateral Eye: Normal Inspection Ears: Normal External Exam, Normal Canal, Hearing Grossly Normal, Normal TMs, TM Fluid Nose: Normal Inspection, Normal Mucousa, No Blood Mouth/Throat: Normal Inspection, Normal Gums, Normal Lips, Normal Oropharynx, Normal Teeth Head: Atraumatic, Normocephalic Neck: Normal Inspection, Supple, Non-Tender, Full Range of Motion Respiratory/Chest: No Respiratory Distress, Lungs Clear, Normal Breath Sounds, No Accessory Muscle Use, Chest Non-Tender Cardiovascular: Normal Peripheral Pulses, Regular Rate, Rhythm, No Edema, No Gallop, No JVD, No Murmur, No Rub GI/Abdominal: Normal Bowel Sounds, Soft, Non-Tender, No Organomegaly, No Distention (Female) Exam: Deferred Rectal (Female) Exam: Deferred Back: Normal Inspection, Full Range of Motion Extremities: Normal Inspection, Normal Range of Motion, Non-Tender, No Pedal Edema, Normal Capillary Refill Neurological: Alert, Oriented, CN II-XII Intact, Normal Cognition, Normal Gait, Normal Reflexes, No Motor/Sensory Deficits Psychiatric: Normal Affect, Normal Mood Skin: Warm, Dry, Intact, Normal Color, No Rash Lymphatic: No Adenopathy Course - Vital Signs Last Recorded V/S: Last Vital Signs Temp 97.6 F 11/21/19 16:05 Pulse 94 11/21/19 16:05 Resp 18 11/21/19 16:05 BP 138/87 11/21/19 16:05 Pulse Ox 98 11/21/19 16:05 - Orders/Labs/Meds Orders: Active Orders 24 hr Category Date Time Status CULTURE STREP A CONFIRMATION [] Stat Lab 11/21/19 16:00 Results CULTURE URINE [] Stat Lab 11/21/19 16:30 Received STREP SCRN A RAPID W CULT CONF [] Stat Lab 11/21/19 16:00 Results Labs: Laboratory Tests 11/21/19 Range/Units 16:30 Urine Color Dark yellow (YELLOW) Urine Appearance Slightly cloudy (CLEAR) Urine pH 6.5 (5.0-9.0) Ur Specific [place] 1.020 (1.005-1.030) Urine Protein 30 H (NEGATIVE) Urine Glucose (UA) Negative (NEGATIVE) Urine Ketones Negative (NEGATIVE) Urine Occult Blood Negative (NEGATIVE) Urine Nitrite Positive H (NEGATIVE) Urine Bilirubin Small H (NEGATIVE) Urine Urobilinogen 2.0 H (0.2-1.0) mg/dL Ur Leukocyte Esterase Small H (NEGATIVE) Urine RBC 0-5 /HPF Urine WBC 10-20 H (0-5/HPF) /HPF Ur Epithelial Cells Moderate H (NOT SEEN) /HPF Urine Bacteria Many H (0-FEW/HPF) /HPF Rapid strep: Negative Meds: Medications Discontinued Medications Generic Name Dose Route Start Last Admin Trade Name Freq PRN Reason Stop Dose Admin Cephalexin 500 mg 11/21/19 16:52 11/21/19 17:00 Keflex PO 11/21/19 16:53 500 mg ONETIME ONE Administration Departure - Departure Time of Disposition: 17:08 Disposition: Home, Self-Care 01 Condition: Fair Clinical Impression: UTI, Urinary tract infectious disease Upper respiratory infection Qualifiers: URI type: unspecified viral URI Qualified Code(s): J06.9 - Acute upper respiratory infection, unspecified - Discharge Information Instructions: Viral Respiratory Infection, [id number], Urinary Tract Infection, Adult, [id number], Upper Respiratory Infection, Adult, [id number] Forms: ED Department Discharge Additional Instructions: RX: Cephalexin Drink plenty of water Follow up with your primary care facility for recheck of urine May use over the counter decongestant (USE CORICIDAN HBP) May use Tylenol and/or Ibuprofen as directed for pain Sepsis Event Note (ED) - Evaluation Sepsis Screening Result: No Definite Risk - Focused Exam Vital Signs: Vital Signs Temp Pulse Resp BP Pulse Ox 11/21/19 16:05 97.6 F 94 18 138/87 98 - My Orders Last 24 Hours: My Active Orders 11/21/19 16:00 CULTURE STREP A CONFIRMATION [RM] Stat STREP SCRN A RAPID W CULT CONF [RM] Stat 11/21/19 16:30 CULTURE URINE [RM] Stat - Assessment/Plan Last 24 Hours: My Active Orders 11/21/19 16:00 CULTURE STREP A CONFIRMATION [RM] Stat STREP SCRN A RAPID W CULT CONF [RM] Stat 11/21/19 16:30 CULTURE URINE [RM] Stat
[2019-11-21] MEDS ORDERED: Cephalexin 500 MG Cap ONE (17:06)
== END 2019-11-21 17:11 | disposition home or self-care (01) ==
LOC: DL.ED 15:42
DX: J06.9 Acute upper respiratory infection, unspecified (principal); N39.0 Urinary tract infection, site not specified; E11.9 Type 2 diabetes mellitus without complications; I10 Essential (primary) hypertension; Z79.899 Other long term (current) drug therapy; Z91.09 Other allergy status, other than to drugs and biological substances; R56.9 Unspecified convulsions; Z87.891 Personal history of nicotine dependence; Z86.73 Personal history of transient ischemic attack (TIA), and cerebral infarction without residual deficits
CPT/HCPCS: 81001; 87081; 87086; 87088; 87186; 87430; 99283; A9270

== ENCOUNTER 2019-12-11 15:11 | Emergency (ER) | payer MEDICARE, BC ==
--- NOTE | 2019-12-11 15:53 | EDM.PDOC ---
ED HPI GENERAL MEDICAL PROBLEM - General Chief Complaint: Genitourinary Problem Stated Complaint: AMBULANCE Time Seen by Provider: 12/11/19 15:40 Source of Information: Reports: Patient History Limitations: Reports: No Limitations - History of Present Illness INITIAL COMMENTS - FREE TEXT/NARRATIVE: This 59 yo female patient reports to the ED with back pain, lower abdominal pain and burning with urination. The patient reports today she has also been feeling dizzy and nauseated. The patient reports she has not taken anything for temporary symptom relief and has not attempted to get into the clinic. The patient reports she has not been eating or drinking much due to the nausea. Onset Date: 12/06/19 Duration: Constant, Getting Worse Location: Reports: Abdomen, Back Quality: Reports: Ache, Dull Severity: Moderate Improves with: Reports: None Worsens with: Reports: None Context: Reports: Other Associated Symptoms: Reports: No Other Symptoms Lower Back Pain Score (Numeric/FACES): 10 - Related Data Allergies Allergy/AdvReac Type Severity Reaction Status Date / Time influenza virus vaccine, Allergy Swelling Verified 12/11/19 15:20 specific strawberry Allergy face Verified 12/11/19 15:20 swells and rash cats Allergy Sneezing Uncoded 12/11/19 15:20 Home Meds: Home Meds Topiramate 150 mg PO BID 07/23/16 [History] carBAMazepine [Carbamazepine] 400 mg PO BID 07/23/16 [History] Acetaminophen [Tylenol] 650 mg PO ASDIRECTED PRN 02/17/18 [History] Past Medical History HEENT History: Reports: Impaired Vision Other HEENT History: wears glasses Cardiovascular History: Reports: High Cholesterol, Hypertension Respiratory History: Reports: None Gastrointestinal History: Reports: None Genitourinary History: Reports: None ICU NURSE History: Reports: None Musculoskeletal History: Reports: None Other Musculoskeletal History: leg pain and 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 Neurological History: Reports: CVA, Seizure Psychiatric History: Reports: None Endocrine/Metabolic History: Reports: Diabetes, Type II Hematologic History: Reports: None Immunologic History: Reports: None Oncologic (Cancer) History: Reports: None Dermatologic History: Reports: None - Infectious Disease History Infectious Disease History: Reports: Mumps - Past Surgical History Head Surgeries/Procedures: Reports: None Social & Family History - Family History Family Medical History: Noncontributory - Caffeine Use Caffeine Use: Reports: Coffee, Soda, Tea ED ROS GENERAL - Review of Systems Review Of Systems: Comprehensive ROS is negative, except as noted in HPI. ED EXAM, RENAL/ - Physical Exam Exam: See Below Exam Limited By: No Limitations General Appearance: Alert, WD/WN, Moderate Distress, Obese Eye Exam: Bilateral Eye: EOMI, Normal Inspection, PERRL Ears: Normal External Exam, Normal Canal, Hearing Grossly Normal, Normal TMs Nose: Normal Inspection, Normal Mucosa, No Blood Throat/Mouth: Normal Inspection, Normal Lips, Normal Teeth, Normal Gums, Normal Oropharynx, Normal Voice, No Airway Compromise Head: Atraumatic, Normocephalic Neck: Normal Inspection, Supple, Non-Tender, Full Range of Motion Respiratory/Chest: No Respiratory Distress, Lungs Clear, Normal Breath Sounds, No Accessory Muscle Use, Chest Non-Tender Cardiovascular: Normal Peripheral Pulses, Regular Rate, Rhythm, No Edema, No Gallop, No JVD, No Murmur, No Rub GI/Abdominal: Normal Bowel Sounds, Soft, No Organomegaly, No Distention, No Abnormal Bruit, No Mass, Tender (mid lower abdomen) (Female) Exam: Deferred Rectal (Female) Exam: Deferred Back Exam: Paraspinal Tenderness Extremities: Normal Inspection, Normal Range of Motion, Non-Tender, Normal Capillary Refill, No Pedal Edema Neurological: Alert, Oriented, CN II-XII Intact, Normal Cognition, Normal Gait, Normal Reflexes, No Motor/Sensory Deficits Psychiatric: Normal Affect, Normal Mood Skin Exam: Warm, Dry, Intact, Normal Color, No Rash Lymphatic: No Adenopathy Course - Vital Signs Last Recorded V/S: Last Vital Signs Temp 36.1 C 12/11/19 15:32 Pulse 88 12/11/19 15:32 Resp 18 12/11/19 15:32 BP 144/61 H 12/11/19 15:32 Pulse Ox 100 12/11/19 15:32 - Orders/Labs/Meds Orders: Active Orders 24 hr Category Date Time Status CULTURE BLOOD [BC] Stat Lab 12/11/19 15:43 Received CULTURE URINE [RM] Urgent Lab 12/11/19 15:25 Received Labs: Laboratory Tests 12/11/19 12/11/19 12/11/19 Range/Units 15:25 15:43 15:43 WBC 10.1 H (5.0-10.0) 10^3/uL RBC 4.63 (4.2-5.4) 10^6/uL Hgb 16.4 H (12.0-16.0) g/dL Hct 47.1 H (37.0-47.0) % MCV 101.7 H (80-100) fL MCH 35.4 H (27.0-34.0) pg MCHC 34.8 (33.0-35.0) g/dL Plt Count 196 (150-450) 10^3/uL Neut % (Auto) 82.7 H (42.2-75.2) % Lymph % (Auto) 12.0 L (20.5-50.1) % [place] % (Auto) 5.0 (2-8) % Eos % (Auto) 0.0 L (1.0-3.0) % Baso % (Auto) 0.3 (0.0-1.0) % Sodium 136 (136-145) mmol/L Potassium 3.5 (3.5-5.1) mmol/L Chloride 101 (98-107) mmol/L Carbon Dioxide 27 (21-32) mmol/L Anion Gap 11.5 (7-13) mEq/L BUN 8 (7-18) mg/dL Creatinine 0.90 (0.55-1.02) mg/dL Est Cr Clr Drug Dosing 48.34 mL/min Estimated GFR (MDRD) > 60 BUN/Creatinine Ratio 8.9 (No establ ref range) Glucose 104 H (74-99) mg/dL Lactic Acid (0.4-2.0) mmol/L Calcium 8.3 L (8.5-10.1) mg/dL Total Bilirubin 0.5 (0.2-1.0) mg/dL AST 13 L (15-37) U/L ALT 21 (14-59) U/L Alkaline Phosphatase 222 H (46-116) U/L Total Protein 8.9 H (6.4-8.2) g/dL Albumin 3.5 (3.4-5.0) g/dL Globulin 5.4 Albumin/Globulin Ratio 0.6 Urine Color Dark yellow (YELLOW) Urine Appearance Turbid (CLEAR) Urine pH 6.5 (5.0-9.0) Ur Specific [place] 1.020 (1.005-1.030) Urine Protein 30 H (NEGATIVE) Urine Glucose (UA) Negative (NEGATIVE) Urine Ketones Negative (NEGATIVE) Urine Occult Blood Negative (NEGATIVE) Urine Nitrite Negative (NEGATIVE) Urine Bilirubin Small H (NEGATIVE) Urine Urobilinogen 2.0 H (0.2-1.0) mg/dL Ur Leukocyte Esterase Small H (NEGATIVE) Urine RBC 0-5 /HPF Urine WBC 75-100 H (0-5/HPF) /HPF Ur Epithelial Cells Many H (NOT SEEN) /HPF Amorphous Sediment Few (NOT SEEN) /HPF Urine Bacteria Many H (0-FEW/HPF) /HPF Urine Mucus Rare (NOT SEEN) /LPF 12/11/19 Range/Units 15:43 WBC (5.0-10.0) 10^3/uL RBC (4.2-5.4) 10^6/uL Hgb (12.0-16.0) g/dL Hct (37.0-47.0) % MCV (80-100) fL MCH (27.0-34.0) pg MCHC (33.0-35.0) g/dL Plt Count (150-450) 10^3/uL Neut % (Auto) (42.2-75.2) % Lymph % (Auto) (20.5-50.1) % [place] % (Auto) (2-8) % Eos % (Auto) (1.0-3.0) % Baso % (Auto) (0.0-1.0) % Sodium (136-145) mmol/L Potassium (3.5-5.1) mmol/L Chloride (98-107) mmol/L Carbon Dioxide (21-32) mmol/L Anion Gap (7-13) mEq/L BUN (7-18) mg/dL Creatinine (0.55-1.02) mg/dL Est Cr Clr Drug Dosing mL/min Estimated GFR (MDRD) BUN/Creatinine Ratio (No establ ref range) Glucose (74-99) mg/dL Lactic Acid 1.3 (0.4-2.0) mmol/L Calcium (8.5-10.1) mg/dL Total Bilirubin (0.2-1.0) mg/dL AST (15-37) U/L ALT (14-59) U/L Alkaline Phosphatase (46-116) U/L Total Protein (6.4-8.2) g/dL Albumin (3.4-5.0) g/dL Globulin Albumin/Globulin Ratio Urine Color (YELLOW) Urine Appearance (CLEAR) Urine pH (5.0-9.0) Ur Specific [place] (1.005-1.030) Urine Protein (NEGATIVE) Urine Glucose (UA) (NEGATIVE) Urine Ketones (NEGATIVE) Urine Occult Blood (NEGATIVE) Urine Nitrite (NEGATIVE) Urine Bilirubin (NEGATIVE) Urine Urobilinogen (0.2-1.0) mg/dL Ur Leukocyte Esterase (NEGATIVE) Urine RBC /HPF Urine WBC (0-5/HPF) /HPF Ur Epithelial Cells (NOT SEEN) /HPF Amorphous Sediment (NOT SEEN) /HPF Urine Bacteria (0-FEW/HPF) /HPF Urine Mucus (NOT SEEN) /LPF Meds: Medications Discontinued Medications Generic Name Dose Route Start Last Admin Trade Name Freq PRN Reason Stop Dose Admin Ceftriaxone Sodium 1 gm/ 0 gm 12/11/19 16:29 Lidocaine HCl 2.1 ml IM 12/11/19 16:30 ONETIME ONE Departure - Departure Time of Disposition: 16:31 Disposition: Home, Self-Care 01 Condition: Fair Clinical Impression: UTI, Urinary tract infectious disease - Discharge Information *PRESCRIPTION DRUG MONITORING PROGRAM REVIEWED*: Not Applicable *COPY OF PRESCRIPTION DRUG MONITORING REPORT IN PATIENT BETO: Not Applicable Instructions: Urinary Tract Infection, Adult, [id number] Forms: ED Department Discharge Care Plan Goals: The patient was advised of the examination and lab results during the visit. The patient was given an injection of Rocephin while in the ED. The patient was discharged with a script for Keflex (500 mg) #14 to take 1 by mouth 2 times per day for 7 days. The patient should take ALL medications as prescribed. The patient should follow-up with her primary care facility in 10 days for continued evaluation and treatment. If the patient has any additional symptoms or concerns, the patient should follow-up with her primary care facility or return to the emergency department. Sepsis Event Note (ED) - Evaluation Sepsis Screening Result: No Definite Risk - Focused Exam Vital Signs: Vital Signs Temp Pulse Resp BP Pulse Ox 12/11/19 15:32 36.1 C 88 18 144/61 H 100 - My Orders Last 24 Hours: My Active Orders 12/11/19 15:25 CULTURE URINE [RM] Urgent 12/11/19 15:43 CULTURE BLOOD [BC] Stat - Assessment/Plan Last 24 Hours: My Active Orders 12/11/19 15:25 CULTURE URINE [RM] Urgent 12/11/19 15:43 CULTURE BLOOD [BC] Stat
[2019-12-11 16:19] LABS: ANION GAP 11.5 mEq/L (7-13); CHLORIDE,CL 101 mmol/L (98-107); SODIUM,NA 136 mmol/L (136-145)
[2019-12-11] MEDS ORDERED: cefTRIAXone 1 GM, Lidocaine 1% 2.1 ML IM ONE ×2 (16:29)
[2019-12-11 16:32] VITALS: BP 149/78; PULSE 83
== END 2019-12-11 17:12 | disposition home or self-care (01) ==
LOC: DL.ED 15:11
DX: N39.0 Urinary tract infection, site not specified (principal); I10 Essential (primary) hypertension; E11.9 Type 2 diabetes mellitus without complications; Z88.7 Allergy status to serum and vaccine; Z91.018 Allergy to other foods; Z91.09 Other allergy status, other than to drugs and biological substances; Z79.899 Other long term (current) drug therapy
CPT/HCPCS: 36415; 80053; 81001; 83605; 85025; 87040; 87086; 87088; 87186; 96372; 99284; J0696; J2001; 99283